=== PATIENT | female | born 1975 | race Caucasian/White ===

== ENCOUNTER 2017-05-14 18:19 | Emergency (ER) | payer MEDICAID ==
[~2017-05-14] VITALS: Ht 154.9 cm; Wt 55.8 kg
[2017-05-14 19:08] VITALS: Ht 154.9 cm; Wt 55.8 kg
[2017-05-14 22:21] VITALS: BP 100/53
[2017-05-14 22:46] LABS: microscopic required? YES; urine erythrocyte 3+ (NEGATIVE)
== END 2017-05-14 22:21 | disposition home or self-care (01) ==
LOC: ED 18:19
PROVIDERS: Emergency Medicine
DX: N39.0 Urinary tract infection, site not specified (principal); N76.0 Acute vaginitis
CPT/HCPCS: J1885

== ENCOUNTER 2018-02-17 03:28 | Emergency (ER) | payer MEDICAID ==
[~2018-02-17] VITALS: Ht 157.5 cm; Wt 55.4 kg
[2018-02-17 03:37] VITALS: BP 116/74; Ht 157.5 cm; Wt 55.4 kg
== END 2018-02-17 05:57 | disposition home or self-care (01) ==
LOC: ED 03:28
DX: K08.89 Other specified disorders of teeth and supporting structures (principal)
CPT/HCPCS: J2270; Q0162

== ENCOUNTER 2018-03-21 10:00 | Emergency (ER) | payer MEDICAID ==
[~2018-03-21] VITALS: Ht 157.5 cm; Wt 54.4 kg
[2018-03-21 10:09] VITALS: Ht 157.5 cm; Wt 54.4 kg
[2018-03-21 11:16] VITALS: BP 118/73
== END 2018-03-21 11:16 | disposition home or self-care (01) ==
LOC: ED 10:00
DX: K08.89 Other specified disorders of teeth and supporting structures (principal)
CPT/HCPCS: J1885

== ENCOUNTER 2020-01-12 17:10 | Emergency (ER) | payer MEDICAID ==
[~2020-01-12] VITALS: Ht 154.9 cm; Wt 68.9 kg
[2020-01-12 18:57] VITALS: BP 128/65
== END 2020-01-12 18:57 | disposition home or self-care (01) ==
LOC: ED 17:10
DX: M25.531 Pain in right wrist (principal)
CPT/HCPCS: Q0092

== ENCOUNTER 2020-01-19 16:43 | Emergency (ER) | payer MEDICAID ==
[~2020-01-19] VITALS: Ht 157.5 cm; Wt 55.3 kg
[2020-01-19 17:10] VITALS: Ht 157.5 cm; Wt 55.3 kg
[2020-01-19 18:29] VITALS: BP 127/65
== END 2020-01-19 18:29 | disposition home or self-care (01) ==
LOC: ED 16:43
DX: G56.01 Carpal tunnel syndrome, right upper limb (principal); E78.00 Pure hypercholesterolemia, unspecified